=== PATIENT | female | born 2000 | race Caucasian/White ===

== ENCOUNTER → 2019-02-04 | Outpatient (CLI) | payer BC, OTHER ==
--- NOTE | 2019-02-04 18:54 | REP ---
HISTORY: Cough and pyrexia. COMPARISON: 03/24/2006. There is a patchy opacity in the left lower lobe with slight left CP angle blunting. The right lung is clear. The heart is not enlarged. The osseous structures are normal. IMPRESSION: Left lower lobe pneumonia with a small left pleural effusion. Electronically Signed by Ray Santiago DO 02/05/2019 10:53 A
== END ==
LOC: M RAD 16:08
PROVIDERS: ATTEND Physician Assistant
DX: J18.9 Pneumonia, unspecified organism (principal); J90 Pleural effusion, not elsewhere classified